=== PATIENT | female | born 1990 | race Caucasian/White ===

== ENCOUNTER 2024-04-21 07:30 | Observation (INO) | payer OTHER, SELFPAY ==
[2024-04-21] VITALS (13 sets, daily range): BP systolic 98–140; BP diastolic 56–81; PULSE 77–165; RESP 16–21; TEMP 36.4–37; O2SAT 96–100; BMI 27.1
--- NOTE | ~2024-04-21 | XR_ITS ---
EXAMINATION: XR CHEST CLINICAL INFORMATION: tachycardia COMPARISON: None available. TECHNIQUE: 2 views of the chest were obtained. FINDINGS: The cardiac, hilar, and mediastinal contours are normal. The lungs are clear bilaterally. There is no pneumothorax or pleural effusion. There is no focal osseous or soft tissue abnormality. XR/XR chest 2V IMPRESSION: Normal chest. Electronically signed by: Jesse Fraser MD 04/21/2024 03:07 PM [facility] [place]
--- NOTE | 2024-04-21 07:37 | ECG_ITS ---
Test Reason : TACHYCARDIA Blood Pressure : / mmHG Vent. Rate : 110 BPM Atrial Rate : 110 BPM P-R Int : 134 ms QRS Dur : 104 ms QT Int : 364 ms P-R-T Axes : 063 048 030 degrees QTc Int : 492 ms Poor data quality Sinus tachycardia Possible Left atrial enlargement No previous ECGs available Referred By: Lyndsey Garcia Electronically Signed By:CA TAPIA MD
[2024-04-21 10:00] LABS: Appearance Urine Cloudy; Color Urine RED; Glucose Urine UA Negative (Negative); Leukocyte Esterase Urine Trace (Negative); Nitrite Urine Negative (Negative); PH 5.5 (5.0-9.0); Specific Gravity - Urine >= 1.030 (1.005-1.025); UMIC TRIGGER UACC YES; Urine Blood Large (3+) (Negative); Urine Ketones >=80 mg/dL (Negative); Urine Protein 100 (2+) mg/dL (Neg-Trace)
[2024-04-21 10:02] LABS: UPreg QC Valid YES; Urine Pregnancy NEGATIVE (NEGATIVE)
[2024-04-21 10:10] LABS: Bacteria Urine 2+ (None Seen); Hyaline Casts Urine 0-2 /LPF (0-2); RBC Urine >20 /HPF (0-2); UACC Culture Trigger YES
--- NOTE | 2024-04-21 10:27 | ECG_ITS ---
Test Reason : TACHYCARDIA Blood Pressure : / mmHG Vent. Rate : 128 BPM Atrial Rate : 128 BPM P-R Int : 120 ms QRS Dur : 084 ms QT Int : 394 ms P-R-T Axes : 038 043 020 degrees QTc Int : 575 ms Sinus tachycardia Nonspecific ST and T wave abnormality Abnormal ECG No previous ECGs available Referred By: Lyndsey Garcia Electronically Signed By:CA TAPIA MD
--- NOTE | 2024-04-21 10:30 | ED_ITS ---
HPI - Arrhythmia/Palpitations General Chief Complaint: Arrhythmia/Palpitations Stated Complaint: TACHYCARDIA,NOT EATING OR DRINKING PER EMS Time Seen by Provider: 04/21/24 09:01 Source: patient and RN notes reviewed Mode of arrival: ambulatory Limitations: no limitations History of Present Illness ED Provider: Lyndsey Garcia PA-C HPI narrative: This is a 33-year-old female who presents emergency department with concerns for palpitations which started this morning. Patient states that over the last 4 days, she has been fasting without any food or water/beverage. She states that while she was cooking today she felt as though her heart was racing when she was standing. She states that she sat down in her symptoms alleviated. She went to go stand back up again, and felt as though her heart was racing again. She states that she did have some lightheadedness sensation. She denies history of similar symptoms in the past. She states that she is fasting for protestant purposes, she states that she has not fasted for this long. She states that today would be the 5th day of her fasting. She states that she has a history of thyroid problems, states that she had a fine-needle aspiration performed multiple years ago which was benign. She is not on thyroid medications. She denies any chest pain, shortness for breath, abdominal pain, nausea, vomiting or diarrhea. No history of cardiac problems in the past. Denies any recent travel, surgery, hospitalizations. No history of blood clots. She is not on control. She does not smoke or drink alcohol. No other complaints or concerns at this time. complaint: rapid heart beat, heart racing and palpitations Onset (ago): hour(s) Time: 08:00 Duration: intermittent Related Data Previous Rx's ?Medication ?Instructions ?Recorded cefuroxime axetil 500 mg tablet 500 mg PO BID #10 tabs 04/22/24 Allergies Allergy/AdvReac Type Severity Reaction Status Date / Time No Known Allergies Allergy Verified 04/21/24 07:43 Review of Systems 2 Review of Systems: Yes all other systems are reviewed and are negative Constitutional: Constitutional: Reports as per [facility] Past Medical History Medical History (Updated 04/22/24 @ 12:15 by Stephen Sheridan MD) Thyroid nodule Social History Social History Household Members: Children Housing: Apartment Do you presently have visiting nurse or other home services: No Patient Tobacco Use Status: Never used Tobacco e-Cigarette/Vaping Use: Never Used Second Hand Smoke Exposure: No service: No Physical Exam 2 Vital Signs: Vital Signs: Last Vital Signs Temp 97.5 F 04/22/24 11:39 Pulse 82 04/22/24 11:39 Resp 18 04/22/24 11:39 BP 122/71 04/22/24 11:39 Pulse Ox 99 04/22/24 11:39 O2 Del Method Room Air 04/22/24 11:39 BMI result Body Mass Index 27.1 Const: General: cooperative, comfortable and no acute distress O rientation/consciousness: patient oriented x3 Limitations: no limitations HEENT: Head: Yes normal to inspection, Yes normocephalic and Yes atraumatic Ears: hearing grossly normal bilaterally General nose exam: Normal external nose present Face and sinus: Yes normal facial exam Mouth: Normal oral and palatal mucosa present, oropharynx normal and moist mucous membranes Throat: Yes posterior oropharynx normal Eyes: General: appearance normal, both eyes and all related structures E yelids: Yes eyelids normal Conjunctivae: conjunctivae normal Sclerae: s clerae normal Pupils: Equal, round and reactive pupils present EOM: EOMs intact bilaterally Neck: Neck: Yes normal visual inspection, Yes full ROM and Yes no lymphadenopathy Lymphatic: no lymphadenopathy noted Chest: Chest palpation & inspection: normal inspection of the chest Resp: Effort & Inspection: normal respiratory effort and able to speak in complete sentences Auscultation: clear to auscultation bilaterally, no crackles, no rales, no rhonchi and no wheezes Cardio: Rate: regular rate Rhythm: regular rhythm Heart sounds: S1 normal heart sound present and S2 normal heart sound present GI: Other: Abdomen is soft, nontender, nondistended Inspection: Yes normal to inspection Skin: General skin exam: no rashes or lesions noted Trauma: no lacerations or abrasions Wounds: no wounds Neuro: General: patient oriented x3 and moves all extremities Cranial nerves: Yes Equal, round and reactive pupils present Extrem: Other: No calf tenderness. Strong DP pulse. General: Yes normal to inspection Right upper extremity: normal to inspection Left upper extremity: normal to inspection Right lower extremity: normal to inspection Left lower extremity: normal to inspection Course Reevaluation(s) Reevaluation #1: Patient re-evaluated, she was currently receiving 2 L of LR. She was feeling much better, she remains to be between 95 and 105 beats per minute. Appears to continuously be in sinus tachycardia. Added D-dimer to rule out PE etiology although she is PERC negative. Will obtain repeat EKG now that her heart rate has decreased. She was also requesting food, she is currently eating a sandwich. Will continue to closely monitor. Time: 11:57 Reevaluation #2: D-dimer negative, overall workup is reassuring. I discussed case with Dr. Subramanian, who does not appreciate any arrhythmias. Encouraged to hydrate and reassess, no other interventions required at this time. Patient did walk to the restroom, and became tachycardic. We had ambulation trial, her tachycardia when up to the 130s even with just 10 steps. Given that we have attempted to rehydrate her with multiple L of fluids, with reassuring workup despite intractable tachycardia, patient should be admitted for observation. Discussed case with hospitalist, Dr. Squires, transfer of care initiated. Time: 14:49 Medications Administered Discontinued Medications Generic Name Dose Route Start Last Admin Trade Name Freq PRN Reason Stop Dose Admin Ceftriaxone Sodium 1 gm 04/22/24 13:00 04/22/24 12:50 Ceftriaxone Sodium 1 Gm Vial IVPUSH 1 gm Q24H ANNITA Administration Lactated Ringer's 1,000 mls @ 999 mls/hr 04/21/24 10:29 04/21/24 12:02 Lr IV 04/21/24 11:29 Infused .Q1H1M STA Infusion Lactated Ringer's 1,000 mls @ 999 mls/hr 04/21/24 11:26 04/21/24 13:15 Lr IV 04/21/24 12:26 Infused .Q1H1M ONE Infusion Sodium Chloride 1,000 mls @ 999 mls/hr 04/21/24 14:29 04/21/24 16:13 Ns IV 04/21/24 15:29 Infused .Q1H1M ONE Infusion Lactated Ringer's 1,000 mls @ 100 mls/hr 04/21/24 17:15 04/22/24 03:42 Lr IVCONT 04/22/24 03:14 Infused .Q10H ANNITA Infusion Sodium Chloride 3 ml 04/22/24 00:00 04/22/24 08:08 0.9 % Sodium Chloride Flush 3 Ml Syringe IVFLUSH Not Given [facility] Medical Decision Making Medical Decision Making [facility] Narrative: This is a 33-year-old female who presents emergency department with concerns for palpitations which started this morning. On arrival, patient not tachycardic, well-appearing. She does admit to fasting for the last 4 days, today would be her 5th day without any food or water. She is doing this for protestant purposes. She has a history of fasting however has not fasted for this long. Patient has periods, ranging from 110s to 160s at rest. Repeat EKGs revealing sinus tachycardia. Plan: Labs, EKG, chest x-rays, we will continue to closely monitor, cardiac monitor technician, will replenish fluids with IV lactated Ringer's Differential Diagnosis Differential Diagnoses: The differential diagnosis associated with the presentation includes Dehydration, electrolyte derangement, sinus tachycardia, hyperthyroidism, thyroid storm, ACS Admission/Observation Consideration of admission/observation: Escalation of care including admission/observation considered Consult Healthcare Provider Management of the patient was discussed with: Software Publisher Dr. Subramanian, cardiology Lab Data [facility] Lab Attestation statement: I reviewed the patient's lab results. No leukocytosis, normocytic anemia with an H&H of 11.1/35.6; UA does appear to be contaminated. negative . 04/21/24 10:38 04/21/24 10:38 Labs: Lab Results 04/21/24 04/21/24 04/21/24 Range/Units 09:54 10:38 12:25 WBC 9.9 (4.8-10.8) X10*3/uL RBC 4.35 (4.20-5.50) X10*6/uL Hgb 11.1 L (12.0-16.0) g/dl Hct 35.6 L (37.0-47.0) % MCV 81.8 (80.0-98.0) fL MCH 25.5 L (27.0-33.0) pg MCHC 31.2 (31.0-35.0) g/dl RDW 15.9 (11.0-16.0) % Plt Count 375 (160-400) X10*3/uL MPV 10.9 (9.4-12.3) fL Immature Gran % (Auto) 0.2 (0.0-0.4) % Neut % (Auto) 84.1 H (45-73) % Lymph % (Auto) 11.2 L (20-40) % [place] % (Auto) 4.2 (2-11) % Eos % (Auto) 0.0 (0-4) % Baso % (Auto) 0.3 (0-2) % Lymph # (Auto) 1.1 L (1.2-4.9) X10*3/uL [place] # (Auto) 0.4 (0.1-1.2) X10*3/uL Eos # (Auto) 0.0 (0.0-0.4) X10*3/uL Baso # (Auto) 0.0 (0.0-0.2) X10*3/uL Abs Immat Gran (auto) 0.02 (0.00-0.03) X10*3/uL Absolute Neuts (auto) 8.3 (2.0-8.3) x10*3/uL Absolute Nucleated RBC 0.000 (0.0-0.012) X10*3/uL Nucleated RBC % (auto) 0.0 (0.0-0.2) /100WBC D-Dimer High Sensitivty < 150 NG/ML Sodium 139 (135-145) mmol/L Potassium 3.8 (3.3-5.1) mmol/L Chloride 106 (96-108) mmol/L Carbon Dioxide 18 L (22-29) mmol/L Anion Gap 19 (12-20) BUN 16 (9-16) mg/dL Creatinine 0.68 (0.5-1.4) mg/dL Estim Creat Clear Calc 116.3 Estimated GFR > 60 POC Glucose (60-115) mg/dL Random Glucose 65 (60-115) mg/dL Calcium 8.9 (8.4-10.2) mg/dL Total Bilirubin 0.7 (0.0-1.0) mg/dL AST 19 (5-31) U/L ALT < 6 (0-31) U/L Alkaline Phosphatase 67 (39-117) U/L Total Creatine Kinase 39 (26-140) U/L Troponin I High Sens < 2.7 (<3.5-17.0) ng/L Total Protein 8.0 (6.5-8.0) g/dL Albumin 4.6 (3.5-5.0) g/dL TSH 1.56 (0.32-4.0) uIU/mL Urine Color RED Urine Appearance Cloudy Urine pH 5.5 (5.0-9.0) Ur Specific [place] >= 1.030 H (1.005-1.025) Urine Protein 100 (2+) H (Neg-Trace) mg/dL Urine Glucose (UA) Negative (Negative) mg/dL Urine Ketones >=80 (Negative) mg/dL Urine Blood Large (3+) H (Negative) Urine Nitrite Negative (Negative) Ur Leukocyte Esterase Trace H (Negative) Urine RBC >20 H (0-2) /HPF Urine WBC 11-20 H (0-5) /HPF Ur Squamous Epith Cells 11-20 (0-2) /HPF Urine Bacteria 2+ (None Seen) Hyaline Casts 0-2 (0-2) /LPF Urine Test NEGATIVE (NEGATIVE) Influenza Type A (PCR) (Negative) Influenza Type B (PCR) (Negative) RSV RNA Qual (PCR) (Negative) SARS-CoV-2 RNA (RT-PCR) (Negative) 04/21/24 04/21/24 04/21/24 Range/Units 13:13 14:28 15:29 WBC (4.8-10.8) X10*3/uL RBC (4.20-5.50) X10*6/uL Hgb (12.0-16.0) g/dl Hct (37.0-47.0) % MCV (80.0-98.0) fL MCH (27.0-33.0) pg MCHC (31.0-35.0) g/dl RDW (11.0-16.0) % Plt Count (160-400) X10*3/uL MPV (9.4-12.3) fL Immature Gran % (Auto) (0.0-0.4) % Neut % (Auto) (45-73) % Lymph % (Auto) (20-40) % [place] % (Auto) (2-11) % Eos % (Auto) (0-4) % Baso % (Auto) (0-2) % Lymph # (Auto) (1.2-4.9) X10*3/uL [place] # (Auto) (0.1-1.2) X10*3/uL Eos # (Auto) (0.0-0.4) X10*3/uL Baso # (Auto) (0.0-0.2) X10*3/uL Abs Immat Gran (auto) (0.00-0.03) X10*3/uL Absolute Neuts (auto) (2.0-8.3) x10*3/uL Absolute Nucleated RBC (0.0-0.012) X10*3/uL Nucleated RBC % (auto) (0.0-0.2) /100WBC D-Dimer High Sensitivty NG/ML Sodium (135-145) mmol/L Potassium (3.3-5.1) mmol/L Chloride (96-108) mmol/L Carbon Dioxide (22-29) mmol/L Anion Gap (12-20) BUN (9-16) mg/dL Creatinine (0.5-1.4) mg/dL Estim Creat Clear Calc Estimated GFR POC Glucose 121 H (60-115) mg/dL Random Glucose (60-115) mg/dL Calcium (8.4-10.2) mg/dL Total Bilirubin (0.0-1.0) mg/dL AST (5-31) U/L ALT (0-31) U/L Alkaline Phosphatase (39-117) U/L Total Creatine Kinase (26-140) U/L Troponin I High Sens < 2.7 (<3.5-17.0) ng/L Total Protein (6.5-8.0) g/dL Albumin (3.5-5.0) g/dL TSH (0.32-4.0) uIU/mL Urine Color Urine Appearance Urine pH (5.0-9.0) Ur Specific [place] (1.005-1.025) Urine Protein (Neg-Trace) mg/dL Urine Glucose (UA) (Negative) mg/dL Urine Ketones (Negative) mg/dL Urine Blood (Negative) Urine Nitrite (Negative) Ur Leukocyte Esterase (Negative) Urine RBC (0-2) /HPF Urine WBC (0-5) /HPF Ur Squamous Epith Cells (0-2) /HPF Urine Bacteria (None Seen) Hyaline Casts (0-2) /LPF Urine Test (NEGATIVE) Influenza Type A (PCR) NEGATIVE (Negative) Influenza Type B (PCR) NEGATIVE (Negative) RSV RNA Qual (PCR) NEGATIVE (Negative) SARS-CoV-2 RNA (RT-PCR) NEGATIVE (Negative) Radiology Impression Discussion of test interpretation with radiology: I have reviewed the radiologist's reading. Radiologist Impression: XR/XR chest 2V IMPRESSION: Normal chest. Electronically signed by: Jesse Fraser MD 04/21/2024 03:07 PM [facility] Dictated By: Jesse Fraser MD Discharge Plan Discharge Clinical Impression: Sinus tachycardia Patient Disposition: Still a Patient Interventions: Admission Worksheet (ED) Last Done: 04/21/24 19:50 Discharge Date/Time: 04/21/24 21:18
[2024-04-21] MEDS: Lactated Ringers 1,000 ML 999 ML IV ×2 (10:37→11:37)
[2024-04-21 10:46] LABS: MANUAL DIFF FLAG NO
[2024-04-21 10:50] LABS: Basophils Percent Auto 0.3 % (0-2); Hematocrit 35.6 % (37.0-47.0); Hemoglobin 11.1 g/dl (12.0-16.0); Imm Gran Abs Auto 0.02 X10*3/uL (0.00-0.03); Imm Gran Pct Auto 0.2 % (0.0-0.4); Lymphocytes Absolute Auto 1.1 X10*3/uL (1.2-4.9); Lymphocytes Percent Auto 11.2 % (20-40); Mean Corpuscular HGB Conc 31.2 g/dl (31.0-35.0); Mean Corpuscular Hemoglobin 25.5 pg (27.0-33.0); Mean Corpuscular Volume 81.8 fL (80.0-98.0); Mean Platelet Volume 10.9 fL (9.4-12.3); Monocytes Absolute Auto 0.4 X10*3/uL (0.1-1.2); Monocytes Percent Auto 4.2 % (2-11); Neutrophils Absolute Auto 8.3 x10*3/uL (2.0-8.3); Neutrophils Percent Auto 84.1 % (45-73); Platelet Count 375 X10*3/uL (160-400); Red Blood Count 4.35 X10*6/uL (4.20-5.50); Red Cell Distribution Width 15.9 % (11.0-16.0); White Blood Count 9.9 X10*3/uL (4.8-10.8)
[2024-04-21 11:08] LABS: Alanine Aminotransferase < 6 U/L (0-31); Albumin Level 4.6 g/dL (3.5-5.0); Alkaline Phosphatase 67 U/L (39-117); Anion Gap 19 (12-20); Aspartate Amino Transferase 19 U/L (5-31); Bilirubin Total 0.7 mg/dL (0.0-1.0); Blood Urea Nitrogen 16 mg/dL (9-16); Calcium 8.9 mg/dL (8.4-10.2); Carbon Dioxide 18 mmol/L (22-29); Chloride 106 mmol/L (96-108); Creatinine Clr Calc Pharmacy 116.3; Estimated Glomerular Filt Rate > 60; Glucose Random 65 mg/dL (60-115); Potassium 3.8 mmol/L (3.3-5.1); Sodium 139 mmol/L (135-145)
--- NOTE | 2024-04-21 11:17 | PC.NURSE ---
Late entry: Pt presents to ED via EMS from home. Reporting fasting with no food or water X4 days for yazdanism reasons. Today felt palpitations and tachycardia while standing, felt like she was going to pass out. Called the ambulance. Alert and oriented, breathing even and unlabored, skin warm and dry. Denies CP, SOB, fevers, recent illnesses
[2024-04-21 11:27] LABS: TSH reflex Free T4 1.56 uIU/mL (0.32-4.0)
--- NOTE | 2024-04-21 11:27 | PC.NURSE ---
This RN was called into room, pts HR increased to 160-170 while laying in bed, did not get up or move. Provider at bedside, repeat EKG, labs and fluids started. Pt remained alert and oriented with stable BP. Denied pain, only reported palpitations. HR decreased on its own to 100-130.
[2024-04-21 11:47] LABS: Troponin-I High Sensitivity < 2.7 ng/L (<3.5-17.0)
--- NOTE | 2024-04-21 11:52 | ECG_ITS ---
Test Reason : REPEAT Blood Pressure : / mmHG Vent. Rate : 098 BPM Atrial Rate : 098 BPM P-R Int : 142 ms QRS Dur : 082 ms QT Int : 362 ms P-R-T Axes : 016 047 013 degrees QTc Int : 462 ms Normal sinus rhythm with sinus arrhythmia Normal ECG When compared to the previous EKG of Nonspecific ST abnormality is no longer Present Referred By: Lyndsey Garcia Electronically Signed By:CA TAPIA MD
[2024-04-21 12:39] LABS: D Dimer High Sensitivity < 150 NG/ML
[2024-04-21 13:18] LABS: Glucose, Whole Blood 121 mg/dL (60-115)
[2024-04-21] MEDS: 0.9 % Sodium Chloride 1,000 ML 999 ML IV (14:38)
[2024-04-21 14:54] LABS: Troponin-I High Sensitivity < 2.7 ng/L (<3.5-17.0)
[2024-04-21 16:24] LABS: Influenza A PCR NEGATIVE (Negative); Influenza B PCR NEGATIVE (Negative); Resp Syncy Virus RNA Qual PCR NEGATIVE (Negative); SARS COV2 PCR INHOUSE NEGATIVE (Negative)
--- NOTE | 2024-04-21 16:52 | P.HPHOSP_ITS ---
History of Present Illness Date of Service: 04/21/24 Attending physician on admission: Albert Squires Chief Complaint: Palpitations Pt is a 33-year-old female with a PMH significant for?benign thyroid nodule not on home medications who presents to the ED with?palpitations and tachycardia since earlier this morning. Patient reports she has been fasting for the past 4 days for lutheran reasons. Has not been eating or drinking anything. This morning upon waking patient attempted to stand up and felt her heart racing so she lay back down to rest. Second attempt at standing led to racing heart again, and she also felt lightheaded and dizzy so called EMS to bring her to the ED for further evaluation. The patient denies chest pain/pressure. No shortness a breath or difficulty breathing. Denies nausea, vomiting, diarrhea. No abdominal pain. Patient notes this is her longest fast yet; usually fasts for 2-3 days at a time and has never had prior complications. Patient was able to eat and drink without incident in the ED. In the ED pt was tachycardic up to 165, vitals otherwise stable and WNL Labs were grossly unremarkable and baseline for patient P no leukocytosis. Stable H&H. No significant electrolyte abnormalities. Renal function baseline. Hepatic function baseline. Serial troponins negative. D-dimer negative. TSH WNL at 1.56. UA with sediment and gross hematuria. Tested negative for flu, RSV, COVID. CXR showed negative for acute cardiopulmonary process. EKG demonstrated sinus tachycardia of [address] and T-wave abnormality. Repeat EKG showed normal sinus rhythm with nonspecific T-wave inversion in V1. Pt was treated with 3L IVF. Pt will be admitted to the hospital under observation for treatment and further evaluation of positional tachycardia. Review of Systems 2 Review of Systems: Negative except for that which is stated in the [facility] Medical History (Updated 04/21/24 @ 17:44 by SHAILESH Álvarez) Thyroid nodule Social History Smoked in Last 30 Days: No Use of substances other than those prescribed or required for medical reasons: No Advance Directives: No Advance Directives Information Provided: No Patient : No Meds Allergies Allergy/AdvReac Type Severity Reaction Status Date / Time No Known Allergies Allergy Verified 04/21/24 07:43 Physical Exam 2 Vital Signs and Narrative: Vital Signs: Last Vital Signs Temp 98.6 F 04/21/24 16:12 Pulse 102 H 04/21/24 16:12 Resp 18 04/21/24 16:12 BP 105/56 L 04/21/24 16:12 Pulse Ox 99 04/21/24 16:12 O2 Del Method Room Air 04/21/24 16:12 BMI result Body Mass Index 27.1 General: AOx4, no acute distress Resp: CTA bilaterally CVS: S1, S2, regular rhythm, tachycardic GI: +BS, NT, no distention Skin: Warm, dry Neuro: Cranial nerves II-XII grossly intact bilaterally. Motor grossly intact bilaterally Extremities: No edema Psych: Appropriate affect Results Labs 04/21/24 10:38 04/21/24 10:38 Labs: Laboratory Results - last 24 hr 04/21/24 04/21/24 04/21/24 09:54 10:38 12:25 MCV 81.8 MCH 25.5 L MCHC 31.2 RDW 15.9 Plt Count 375 MPV 10.9 Immature Gran % (Auto) 0.2 Neut % (Auto) 84.1 H Lymph % (Auto) 11.2 L [place] % (Auto) 4.2 Eos % (Auto) 0.0 Baso % (Auto) 0.3 Lymph # (Auto) 1.1 L [place] # (Auto) 0.4 Eos # (Auto) 0.0 Baso # (Auto) 0.0 Abs Immat Gran (auto) 0.02 Absolute Neuts (auto) 8.3 Absolute Nucleated RBC 0.000 Nucleated RBC % (auto) 0.0 D-Dimer High Sensitivty < 150 Anion Gap 19 Estim Creat Clear Calc 116.3 Estimated GFR > 60 POC Glucose Random Glucose 65 Calcium 8.9 Total Bilirubin 0.7 AST 19 ALT < 6 Alkaline Phosphatase 67 Total Creatine Kinase 39 Troponin I High Sens < 2.7 Total Protein 8.0 Albumin 4.6 TSH 1.56 Urine Color RED Urine Appearance Cloudy Urine pH 5.5 Ur Specific [place] >= 1.030 H Urine Protein 100 (2+) H Urine Glucose (UA) Negative Urine Ketones >=80 Urine Blood Large (3+) H Urine Nitrite Negative Ur Leukocyte Esterase Trace H Urine RBC >20 H Urine WBC 11-20 H Ur Squamous Epith Cells 11-20 Urine Bacteria 2+ Hyaline Casts 0-2 Urine Test NEGATIVE Influenza Type A (PCR) Influenza Type B (PCR) RSV RNA Qual (PCR) SARS-CoV-2 RNA (RT-PCR) 04/21/24 04/21/24 04/21/24 13:13 14:28 15:29 MCV MCH MCHC RDW Plt Count MPV Immature Gran % (Auto) Neut % (Auto) Lymph % (Auto) [place] % (Auto) Eos % (Auto) Baso % (Auto) Lymph # (Auto) [place] # (Auto) Eos # (Auto) Baso # (Auto) Abs Immat Gran (auto) Absolute Neuts (auto) Absolute Nucleated RBC Nucleated RBC % (auto) D-Dimer High Sensitivty Anion Gap Estim Creat Clear Calc Estimated GFR POC Glucose 121 H Random Glucose Calcium Total Bilirubin AST ALT Alkaline Phosphatase Total Creatine Kinase Troponin I High Sens < 2.7 Total Protein Albumin TSH Urine Color Urine Appearance Urine pH Ur Specific [place] Urine Protein Urine Glucose (UA) Urine Ketones Urine Blood Urine Nitrite Ur Leukocyte Esterase Urine RBC Urine WBC Ur Squamous Epith Cells Urine Bacteria Hyaline Casts Urine Test Influenza Type A (PCR) NEGATIVE Influenza Type B (PCR) NEGATIVE RSV RNA Qual (PCR) NEGATIVE SARS-CoV-2 RNA (RT-PCR) NEGATIVE Imaging Radiologist's Impressions: Impressions Chest X-Ray 04/21/24 14:54 IMPRESSION: Normal chest. Electronically signed by: Jesse Fraser MD 04/21/2024 03:07 PM [facility] Assessment and Plan (1) Sinus tachycardia: Status: Acute Plan Pt is a 33-year-old female with a PMH significant for?benign thyroid nodule not on home medications who presents to the ED with?palpitations and tachycardia since earlier this morning. Pt will be admitted to the hospital under observation for treatment and further evaluation of positional tachycardia. Sinus tachycardia Patient with tachycardia/palpitations with some lightheadedness since this morning Primarily positional with standing Patient has been fasting x4 days, her longest yet Broke fast in the ED, tolerating food and drink Patient received 3L IVF in the ED Likely in the setting of prolonged fast, though POTS also on differential Will place on maintenance fluids overnight Cardiology consult Monitor on telemetry Hx of benign thyroid nodule S/P partial thyroidectomy Patient not thyroid replacement therapy TSH WNL Gross hematuria Patient currently menstruating Full Code Attending:?Dr. Squires DVT Prophylaxis: Pt ambulatory, here for observation Patient will be admitted to the hospital under observation for treatment and further evaluation of persistent tachycardia and palpitations. Patient requires administration of IVF, specialist consultation with Cardiology, and continuous cardiac monitoring. Quality Stroke Does the patient have a stroke diagnosis?: No VTE Prior VTE?: No VTE Risk Level:: Medical - moderate - high VTE Device Contraindication: N/A - Device Ordered VTE Drug Contraindication: Treatment Not Indicated
--- NOTE | 2024-04-21 17:00 | PHA.MEDREC ---
Pharmacy Consult ? Medication Reconciliation Pharmacy has completed the medication reconciliation. Spoke to patient at bedside, she takes no medicaitons at home.
[2024-04-21] MEDS: Lactated Ringers 1,000 ML 100 ML IVCONT (17:40)
[2024-04-22 03:09] VITALS: BP 118/68; PULSE 76; RESP 16; TEMP 37; O2SAT 100
--- NOTE | 2024-04-22 04:48 | PC.NURSE ---
Assumed care of patient at 23:00. Reported provided by AMY Kumar.
[2024-04-22 07:06] VITALS: BP 108/58; PULSE 84; RESP 18; TEMP 36.7; O2SAT 97
--- NOTE | 2024-04-22 10:13 | MHC.CM.PN ---
NIC[place]LE 04/22/24, Pt lives with her children, she is independent, no home health services or DME. She can arrange transport home at DC. CM to follow for DC needs.
[2024-04-22 11:39] VITALS: BP 122/71; PULSE 82; RESP 18; TEMP 36.4; O2SAT 99
--- NOTE | 2024-04-22 12:15 | PM.DS ---
DS: Providers Provider Date of Service: 04/22/24 Date of admission: 04/21/24 17:14 Date of discharge: 04/22/24 Primary care physician: Unknown Physician Consults: 04/21/24 17:14 Consult to Cardiology Routine Consulting Provider: [facility] Reason for consultation: Tachycardia, lightheadedness DS: Diagnosis Discharge Diagnosis (1) Sinus tachycardia: Status: Acute (2) UTI (urinary tract infection): Status: Acute DS: Summary Hospital Course Hospital Course: Admission note HPI Pt is a 33-year-old female with a PMH significant for?benign thyroid nodule not on home medications who presents to the ED with?palpitations and tachycardia since earlier this morning. Patient reports she has been fasting for the past 4 days for orthodox reasons. Has not been eating or drinking anything. This morning upon waking patient attempted to stand up and felt her heart racing so she lay back down to rest. Second attempt at standing led to racing heart again, and she also felt lightheaded and dizzy so called EMS to bring her to the ED for further evaluation. The patient denies chest pain/pressure. No shortness a breath or difficulty breathing. Denies nausea, vomiting, diarrhea. No abdominal pain. Patient notes this is her longest fast yet; usually fasts for 2-3 days at a time and has never had prior complications. Patient was able to eat and drink without incident in the ED. In the ED pt was tachycardic up to 165, vitals otherwise stable and WNL Labs were grossly unremarkable and baseline for patient P no leukocytosis. Stable H&H. No significant electrolyte abnormalities. Renal function baseline. Hepatic function baseline. Serial troponins negative. D-dimer negative. TSH WNL at 1.56. UA with sediment and gross hematuria. Tested negative for flu, RSV, COVID. CXR showed negative for acute cardiopulmonary process. EKG demonstrated sinus tachycardia of [address] and T-wave abnormality. Repeat EKG showed normal sinus rhythm with nonspecific T-wave inversion in V1. Pt was treated with 3L IVF. Pt will be admitted to the hospital under observation for treatment and further evaluation of positional tachycardia. Hospital course The patient was monitored for sinus tachycardia with No chest pain, SOB, lightheadness, LOC, syncope, nausea, vomiting, diarrhea. She received IV fluids boluses with good response as HR stabilized and she did not have any more palpitations. Monitored on Telemetry with no recorded abnormalities. UA showed possible UTI which might add to her fasting of 4 days causing the palpitations and tachycardia. Treated with IV Ceftriaxone and will be dischaged home on Ceftin to finish total of 5 days of Abx. Discharge plan Stay well hydrated Continue Antibiotics as prescribed Time Attestation Discharge Coordination Time (in mins): 27 Quality: Safe Use of Opioids Does Pt have an Active Cancer Diagnosis on the Problem List?: No Quality: Stroke Does the patient have a stroke diagnosis?: No Physical Exam Vital Signs: Vital Signs: Last Vital Signs Temp 97.5 F 04/22/24 11:39 Pulse 82 04/22/24 11:39 Resp 18 04/22/24 11:39 BP 122/71 04/22/24 11:39 Pulse Ox 99 04/22/24 11:39 O2 Del Method Room Air 04/22/24 11:39 BMI result Body Mass Index 27.1 Const: Other: Constitutional : Awake, interactive, not in distress Neck : Normal inspection, Supple Cardiovascular : RRR, no JVP, no lower extremity edema Respiratory : good bilateral air entry, no crackles, wheezes or rhonchi Gastrointestinal: soft, lax, Normal bowel sounds, Non tender Skin : Warm, Dry Neurological : Alert & oriented x3, No focal deficit DS: Data Data Completed and Pending Labs on day of discharge: Laboratory Results - last 24 hr 04/21/24 04/21/24 04/21/24 12:25 13:13 14:28 D-Dimer High Sensitivty < 150 POC Glucose 121 H Troponin I High Sens < 2.7 Influenza Type A (PCR) Influenza Type B (PCR) RSV RNA Qual (PCR) SARS-CoV-2 RNA (RT-PCR) 04/21/24 15:29 D-Dimer High Sensitivty POC Glucose Troponin I High Sens Influenza Type A (PCR) NEGATIVE Influenza Type B (PCR) NEGATIVE RSV RNA Qual (PCR) NEGATIVE SARS-CoV-2 RNA (RT-PCR) NEGATIVE Imaging Chest x-ray: Radiologist's impression: ITS Impressions Chest X-Ray 04/21/24 14:54 IMPRESSION: Normal chest. Electronically signed by: Jesse Fraser MD 04/21/2024 03:07 PM [facility] Discharge Plan Discharge Anticipated Discharge Date/Time: 04/22/24 12:10 Patient Disposition: Home, Self-Care Discharge Diagnosis: Dehydration Sinus tachycardia Referrals: Physician,Unknown J [Primary Care Provider] - 1 Week Discharge Medications: New cefuroxime axetil 500 mg tablet 500 mg PO BID Qty: 10 0RF Discharge Orders: Discharge Order (Routine); Ordered 04/22/24 Ordered By: Stephen Sheridan Diet: Advance to usual diet Activity on Discharge: As tolerated Stand Alone Forms: Patient Portal Discharge page Print Language: Mauritian Care Plan Goals: Stay well hydrated Continue Antibiotics treatment Health Concerns: UTI Dehydration Plan of Treatment: Antibiotics Assessment: as above
--- NOTE | 2024-04-22 12:32 | MHC.CM.PN ---
Pt has been medically cleared for DC, she will go home via private transport, plan is self care.
[2024-04-22] MEDS: cefTRIAXone sodium 1 GM VIAL IVPUSH (12:50)
== END 2024-04-22 13:00 | disposition home or self-care (01) ==
LOC: HO.ED 14:54 → HO.EDOVER 17:20 → HO.IMC 19:21
PROVIDERS: Physician Assistant Medical; Admitting Provider Student in an Organized Health Care Education/Training Program; Emergency Provider Emergency Medicine; Visit Provider Student in an Organized Health Care Education/Training Program
DX: R00.0 Tachycardia, unspecified (principal); N39.0 Urinary tract infection, site not specified; R00.2 Palpitations; Z03.818 Encounter for observation for suspected exposure to other biological agents ruled out
CPT/HCPCS: 0241U; 36415; 71046; 80053; 81001; 81025; 82550; 82947; 84443; 84484; 85025; 85379; 87086; 87147; 93005; 96361; 96374; 99222; 99285; J0696; J7120

== ENCOUNTER → 2024-04-21 07:37 | Outpatient (BNV) | payer OTHER, SELFPAY | PROVIDERS: Emergency Provider Emergency Medicine; Visit Provider Internal Medicine Cardiovascular Disease | DX: R00.0 Tachycardia, unspecified (principal); I49.9 Cardiac arrhythmia, unspecified | CPT/HCPCS: 93010 ==

== ENCOUNTER → 2024-04-21 14:54 | Outpatient (BNV) | payer OTHER, SELFPAY | PROVIDERS: Emergency Provider Emergency Medicine; Visit Provider Radiology Diagnostic Radiology | DX: R00.0 Tachycardia, unspecified (principal) | CPT/HCPCS: 71046 ==

== ENCOUNTER → 2024-04-21 17:14 | Outpatient (BNV) | payer OTHER, SELFPAY | PROVIDERS: Admitting Provider Student in an Organized Health Care Education/Training Program; Emergency Provider Emergency Medicine; Visit Provider Student in an Organized Health Care Education/Training Program | DX: R00.0 Tachycardia, unspecified (principal); N39.0 Urinary tract infection, site not specified | CPT/HCPCS: 99222; 99238 ==

== ENCOUNTER 2024-04-23 03:55 | Emergency (ER) | payer OTHER, SELFPAY ==
[2024-04-23] VITALS (11 sets, daily range): BP systolic 112–144; BP diastolic 67–96; PULSE 78–130; RESP 14–19; TEMP 36.7–36.9; O2SAT 96–100; BMI 27.1
--- NOTE | 2024-04-23 | ECG_ITS ---
Test Reason : TACHY Blood Pressure : / mmHG Vent. Rate : 097 BPM Atrial Rate : 097 BPM P-R Int : 138 ms QRS Dur : 084 ms QT Int : 362 ms P-R-T Axes : 018 028 001 degrees QTc Int : 459 ms Normal sinus rhythm Nonspecific ST and T wave abnormality Abnormal ECG When compared with ECG of 21-APR-2024 12:00, Nonspecific T wave abnormality, worse in Anterior leads Referred By: Generic ED Physician Electronically Signed By:CA TAPIA MD
--- NOTE | 2024-04-23 | ECG_ITS ---
Test Reason : tachy 130's Blood Pressure : / mmHG Vent. Rate : 111 BPM Atrial Rate : 111 BPM P-R Int : 138 ms QRS Dur : 084 ms QT Int : 340 ms P-R-T Axes : 026 044 -14 degrees QTc Int : 462 ms Sinus tachycardia Nonspecific ST and T wave abnormality Abnormal ECG When compared with ECG of 23-APR-2024 04:06, Nonspecific T wave abnormality now evident in Lateral leads Referred By: Generic ED Physician Electronically Signed By:CA TAPIA MD
[2024-04-23 04:37] LABS: Hemoglobin 11.1 g/dl (12.0-16.0); Mean Corpuscular HGB Conc 32.6 g/dl (31.0-35.0); Mean Corpuscular Hemoglobin 25.9 pg (27.0-33.0); Mean Corpuscular Volume 79.3 fL (80.0-98.0); Mean Platelet Volume 10.2 fL (9.4-12.3); Platelet Count 302 X10*3/uL (160-400); Red Blood Count 4.29 X10*6/uL (4.20-5.50); Red Cell Distribution Width 16.1 % (11.0-16.0)
[2024-04-23 04:57] LABS: Troponin-I High Sensitivity < 2.7 ng/L (<3.5-17.0)
[2024-04-23 05:02] LABS: Alanine Aminotransferase 15 U/L (0-31); Albumin Level 3.9 g/dL (3.5-5.0); Alkaline Phosphatase 66 U/L (39-117); Anion Gap 14 (12-20); Aspartate Amino Transferase 19 U/L (5-31); Bilirubin Total 0.3 mg/dL (0.0-1.0); Blood Urea Nitrogen 8 mg/dL (9-16); Calcium 8.8 mg/dL (8.4-10.2); Carbon Dioxide 23 mmol/L (22-29); Chloride 112 mmol/L (96-108); Creatinine Clr Calc Pharmacy 116.3; Estimated Glomerular Filt Rate > 60; Glucose Random 124 mg/dL (60-115); Potassium 3.5 mmol/L (3.3-5.1); Sodium 145 mmol/L (135-145); Total Protein 6.7 g/dL (6.5-8.0)
--- NOTE | 2024-04-23 05:30 | ED_ITS ---
HPI - Arrhythmia/Palpitations General Chief Complaint: Arrhythmia/Palpitations Stated Complaint: TACHY Time Seen by Provider: 04/23/24 05:22 Source: patient and EMS Mode of arrival: EMS Limitations: no limitations History of Present Illness ED Provider: Dr. Jennifer Sanchez HPI narrative: Patient comes to the emergency room complaining of palpitations. Patient was discharged yesterday from the inpatient floor for the same symptoms. Previously, patient was admitted for palpitations. It was determined that patient was dehydrated due to lack of p.o. intake both solids and fluids due to mosque beliefs. Also, patient was diagnosed with a UTI. Patient states that after she got discharged home, she ate and drank fluids as usual. Patient states that about 2 hours ago patient woke up with palpitations, heart rate between 130 and 140, became concerned because she has not been fasting, came to the emergency room. Patient denies any chest pain, no shortness of breath. Patient states that when EMS arrived, her heart rate had already returned to normal. Related Data Previous Rx's ?Medication ?Instructions ?Recorded cefuroxime axetil 500 mg tablet 500 mg PO BID #10 tabs 04/22/24 Allergies Allergy/AdvReac Type Severity Reaction Status Date / Time No Known Allergies Allergy Verified 04/23/24 04:42 Review of Systems 2 Review of Systems: Constitutional : No Weight loss, No Fever, No Chills, No Night Sweats, No Fatigue, No Malaise ENT/Mouth : No Hearing loss, No Ear Pain, No Nasal Congestion, No Sinus Pain, No Hoarseness, No sore throat, No Rhinorrhea, No Swallowing Difficulty Eyes: No Eye Pain, No Swelling, No Redness, No Foreign Body, No Discharge, No Vision Changes Cardiovascular : No Chest Pain, No SOB, No Dyspnea on Exertion, No Orthopnea, no edema, complaining of palpitations intermittently. Respiratory : No Cough, No Sputum, No Wheezing, No Smoke Exposure, No Dyspnea Gastrointestinal : No Nausea, No Vomiting, No Diarrhea, No Constipation, No abdominal Pain, No Hematochezia, No Melena Genitourinary : no irregular bleeding, No Dysuria, No Urinary Frequency, No Hematuria, No Urinary Incontinence, No Urgency, No Flank Pain, No Urinary Flow Changes, No Hesitancy Musculoskeletal : No joint pain, No Myalgias, No Joint Swelling Skin : No Skin Lesions, No rash Neuro : No Weakness, No Numbness, No Paresthesias, No Loss of Consciousness, No Dizziness, No Headache Psych : No Anxiety/Panic, No Depression, No SI/HI/AH/VH, No Social Issues, Heme/Lymph: No Bruising, No Bleeding,No Lymphadenopathy Endocrine : No Polyuria, No Polydipsia, No Temperature Intolerance [facility] Past Medical History Medical History Thyroid nodule Social History Social History Household Members: Children Housing: Apartment Do you presently have visiting nurse or other home services: No Patient Tobacco Use Status: Never used Tobacco e-Cigarette/Vaping Use: Never Used Second Hand Smoke Exposure: No Advance Directives: No Advance Directives Information Provided: Yes service: No Physical Exam 2 Vital Signs: Vital Signs: Last Vital Signs Temp 98.1 F 04/23/24 06:45 Pulse 99 04/23/24 06:45 Resp 19 04/23/24 06:45 BP 120/72 04/23/24 06:45 Pulse Ox 96 04/23/24 06:45 O2 Del Method Room Air 04/23/24 06:45 BMI result Body Mass Index 27.1 Const: Other: Appearance: Alert. Oriented X3. No acute distress. Eyes: Pupils equal, round and reactive to light. ENT: Pharynx normal. Neck: Normal inspection. Neck supple. No lymph nodes noted. No crepitus CVS: Normal heart rate and rhythm. Pulses normal. Normal S1 and S2 Respiratory: No respiratory distress. Breath sounds normal. No Wheezing. No rales Abdomen: Soft and nontender. No rigidity. No distention. Skin: Skin warm and dry. Normal skin color. Normal skin turgor. Extremities: No lower extremity edema. No Lacerations. No Rash Neuro: Oriented X 3. No motor deficit. No sensory deficit. Moving all extremities. No slurred speech. CN 2 through 12 grossly intact Psych: calm, cooperative, normal affect Medications Administered Generic Name Dose Route Start Last Admin Trade Name Freq PRN Reason Stop Dose Admin Sodium Chloride 2,000 mls @ 999 mls/hr 04/23/24 05:29 04/23/24 05:47 Ns IVCONT 04/23/24 07:29 999 mls/hr .Q2H1M ONE Administration Medical Decision Making Medical Decision Making [facility] Narrative: My interpretation of labs: Patient's hematology and chemistry remain unchanged. Yesterday a D-dimer was negative. TSH checked yesterday, within normal limits. Patient is currently being treated for a UTI, patient states she has has been compliant with her medications. Serology test negative for influenza RSV and COVID. -patient receiving 2 L of fluids, then we will ambulate the patient. Patient received 2 L of fluids. Patient is about to be ambulated. I discussed with the patient that we will walk with her around the emergency room and check her heart rate. Plan: With walking, it is expected that patient's heart rate will increase. However, is also expected to return back to regular rate. If patient remains tachycardic, please call Cardiology and ask if they would recommend starting the patient on metoprolol or if they want to see the patient for a possible Holter monitor evaluation. Sign-out given to my colleague SHAILESH Garcia Differential Diagnosis Differential Diagnoses: The differential diagnosis associated with the presentation includes (Dehydration, POTS, SVT) Admission/Observation Consideration of admission/observation: Escalation of care including admission/observation considered (Patient was discharged yesterday, patient comes in with a recurrent symptoms. Observation considered) Lab Data [facility] Lab Attestation statement: I reviewed the patient's lab results. 04/23/24 04:31 04/23/24 04:31 Labs: Lab Results 04/23/24 Range/Units 04:31 WBC 4.0 L (4.8-10.8) X10*3/uL RBC 4.29 (4.20-5.50) X10*6/uL Hgb 11.1 L (12.0-16.0) g/dl Hct 34.0 L (37.0-47.0) % MCV 79.3 L (80.0-98.0) fL MCH 25.9 L (27.0-33.0) pg MCHC 32.6 (31.0-35.0) g/dl RDW 16.1 H (11.0-16.0) % Plt Count 302 (160-400) X10*3/uL MPV 10.2 (9.4-12.3) fL Absolute Nucleated RBC 0.000 (0.0-0.012) X10*3/uL Nucleated RBC % (auto) 0.0 (0.0-0.2) /100WBC Sodium 145 (135-145) mmol/L Potassium 3.5 (3.3-5.1) mmol/L Chloride 112 H (96-108) mmol/L Carbon Dioxide 23 (22-29) mmol/L Anion Gap 14 (12-20) BUN 8 L (9-16) mg/dL Creatinine 0.68 (0.5-1.4) mg/dL Estim Creat Clear Calc 116.3 Estimated GFR > 60 Random Glucose 124 H (60-115) mg/dL Calcium 8.8 (8.4-10.2) mg/dL Total Bilirubin 0.3 (0.0-1.0) mg/dL AST 19 (5-31) U/L ALT 15 (0-31) U/L Alkaline Phosphatase 66 (39-117) U/L Troponin I High Sens < 2.7 (<3.5-17.0) ng/L Total Protein 6.7 (6.5-8.0) g/dL Albumin 3.9 (3.5-5.0) g/dL Critical Care Time Critical Care Time Critical Care Time: Yes Total Critical Care Time: 45 Attestation: I have personally provided critical care time. Time includes review of lab data, radiology results, discussion with consultants, and monitoring for potential decompensation. Intervention performed as documented. Discharge Plan Discharge Clinical Impression: Sinus tachycardia Patient Disposition: Still a Patient Prescriptions: No Action cefuroxime axetil 500 mg tablet 500 mg PO BID Qty: 10 0RF Print Language: Mongolian
[2024-04-23] MEDS: 0.9 % Sodium Chloride 2,000 ML 999 ML IVCONT (05:47)
--- NOTE | 2024-04-23 07:21 | MHC.EDTECH ---
Post-IV fluid ambulation trial ~60feet with HR completed w/o any visible physical difficulty.Pre-trial HR at 85 and kwabena to 112 during trial. During trial, patient had normal gait w no muscular weakness, no imbalance, no dyspnea, and reported no dizziness or pain.
--- NOTE | 2024-04-23 07:59 | PC.NURSE ---
Patient ambulating pederson, HR went to 112s and returned to 90s at rest.
--- NOTE | 2024-04-23 08:59 | PC.NURSE ---
Patient OOB ambulating pederson, HR monitor in place, HR stayed between 106-112, SHAILESH Solorio made aware. Patient currently resting in bed, VSS, HR currently 84-85.
--- NOTE | 2024-04-23 12:16 | PM.CNCAR ---
History of Present Illness History of Present Illness Date of Service: 04/23/24 Chief complaint: TACHY Narrative: 33-year-old female who left the hospital 1 day ago when she presented with tachycardia. She was diagnosed with UTI and dehydration. She does pentecostal fast for 3 days without eating and drinking. She said she started her fast without hydration before hand and started feeling tachycardia and palpitations. These symptoms brought her to the emergency department. She was noticed to be significantly dehydrated and was given IV fluids. She also has urinalysis performed and was started on antibiotics. Urine culture has grown mixed yumi and likely that she does not have a UTI. She said she went home and was hydrating herself but had some palpitations and dizziness. Due to dizziness she decided to come back to the emergency department. Here her orthostatics were negative. She was given 2 L of fluid. Electrolytes are fairly normal looking. EKG has sinus rhythm with flattening of T-waves but potassium was 3.5 on this presentation. Thyroid panel was normal. 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 [facility] Past Medical History Medical History Thyroid nodule Social History Social History Household Members: Children Housing: Apartment Do you presently have visiting nurse or other home services: No Alcohol intake: never Patient Tobacco Use Status: Never used Tobacco Smoked in Last 30 Days: No e-Cigarette/Vaping Use: Never Used Second Hand Smoke Exposure: No Use of substances other than those prescribed or required for medical reasons: No Advance Directives: No Advance Directives Information Provided: Yes service: No Meds Allergies Allergy/AdvReac Type Severity Reaction Status Date / Time No Known Allergies Allergy Verified 04/23/24 04:42 Physical Exam Vital Signs: Vital Signs: Last Vital Signs Temp 98.1 F 04/23/24 10:31 Pulse 88 04/23/24 11:29 Resp 14 04/23/24 10:31 BP 119/80 04/23/24 11:29 Pulse Ox 99 04/23/24 10:31 O2 Del Method Room Air 04/23/24 10:31 BMI result Body Mass Index 27.1 GENERAL APPEARANCE: in no acute distress, pleasant. Dry lips and she looks dehydrated. NECK: no carotid bruit, no jugular venous distention. SKIN: no suspicious lesions, warm and dry. HEART: no murmurs, regular rate and rhythm. LUNGS: clear to auscultation bilaterally. ABDOMEN: soft, nontender. EXTREMITIES: no edema. PERIPHERAL PULSES: equal. NEUROLOGIC: No gross deficits, AAO X 3 Objective Labs and Meds 04/23/24 04:31 04/23/24 04:31 Lab results: Laboratory Results - last 24 hr 04/23/24 04:31 WBC 4.0 L RBC 4.29 Hgb 11.1 L Hct 34.0 L MCV 79.3 L MCH 25.9 L MCHC 32.6 RDW 16.1 H Plt Count 302 MPV 10.2 Absolute Nucleated RBC 0.000 Nucleated RBC % (auto) 0.0 Sodium 145 Potassium 3.5 Chloride 112 H Carbon Dioxide 23 Anion Gap 14 BUN 8 L Creatinine 0.68 Estim Creat Clear Calc 116.3 Estimated GFR > 60 Random Glucose 124 H Calcium 8.8 Total Bilirubin 0.3 AST 19 ALT 15 Alkaline Phosphatase 66 Troponin I High Sens < 2.7 Total Protein 6.7 Albumin 3.9 Assessment and Plan (1) Sinus tachycardia: Status: Acute Plan 33-year-old female presenting for palpitations and sinus tachycardia. She does pentecostal fasting for up to 3 days without eating and drinking. She presented to us after doing that couple of days ago and was quite dehydrated and had sinus tachycardia. She was volume resuscitated with improvement in tachycardia and symptoms. At home she had some further palpitations and dizziness and came back. She is not orthostatic. She has been given 2 L of fluid at this stage. I have advised her to continue to hydrate herself and probably add some electrolytes to her fluids and maybe drink Gatorade or similar electrolyte containing drinks. She already uses salt in her diet and that is adequate and she does not need to add more salt to her food. I think her presentation is due to dehydration and volume depletion. She understands this and will try to hydrate herself better. Thyroid panel is normal. We will arrange follow-up for her with our office. Thank you for allowing me to participate in the care of your patient. Please feel free to contact me if you have any questions. Procedures Date of Service Date of Service: 04/23/24
[2024-04-23 12:38] LABS: Iron 16 mcg/dL (30-160); Percent Iron Saturation 6 % (15-50); Total Iron Binding Capacity 277 mcg/dL (228-428); Unsaturated Iron Binding 261 ug/dL
== END 2024-04-23 13:43 | disposition home or self-care (01) ==
PROVIDERS: Physician Assistant Medical; Emergency Provider Emergency Medicine
DX: R00.0 Tachycardia, unspecified (principal); I49.9 Cardiac arrhythmia, unspecified; N39.0 Urinary tract infection, site not specified; R11.2 Nausea with vomiting, unspecified; Z79.899 Other long term (current) drug therapy
CPT/HCPCS: 36415; 80053; 83540; 84484; 85027; 93005; 96360; 96361; 99285

== ENCOUNTER → 2024-04-23 05:56 | Outpatient (BNV) | payer OTHER, SELFPAY | PROVIDERS: Emergency Provider Emergency Medicine; Visit Provider Internal Medicine Cardiovascular Disease | DX: R00.0 Tachycardia, unspecified (principal); R94.31 Abnormal electrocardiogram [ECG] [EKG] | CPT/HCPCS: 93010 ==

== ENCOUNTER 2024-05-11 09:21 | Emergency (ER) | payer OTHER, SELFPAY ==
--- NOTE | 2024-05-11 09:28 | ECG_ITS ---
Test Reason : palpitations Blood Pressure : */* mmHG Vent. Rate : 100 BPM Atrial Rate : 100 BPM P-R Int : 144 ms QRS Dur : 82 ms QT Int : 346 ms P-R-T Axes : 58 33 34 degrees QTcB Int : 446 ms Normal sinus rhythm Possible Left atrial enlargement Borderline ECG When compared with ECG of 23-Apr-2024 04:19, Nonspecific T wave abnormality no longer evident in Anterolateral leads Referred By: Generic ED Physician Electronically Signed By: Alexey Subramanian
[2024-05-11 09:31] VITALS: BP 135/87; PULSE 99; RESP 16; TEMP 37; O2SAT 99; BMI 27.8
[2024-05-11 10:18] LABS: MANUAL DIFF FLAG NO
[2024-05-11 10:22] LABS: Basophils Absolute Auto 0.1 X10*3/uL (0.0-0.2); Basophils Percent Auto 0.6 % (0-2); Eosinophils Percent Auto 0.1 % (0-4); Hemoglobin 10.9 g/dl (12.0-16.0); Imm Gran Abs Auto 0.04 X10*3/uL (0.00-0.03); Imm Gran Pct Auto 0.4 % (0.0-0.4); Lymphocytes Absolute Auto 0.8 X10*3/uL (1.2-4.9); Lymphocytes Percent Auto 8.9 % (20-40); Mean Corpuscular HGB Conc 31.1 g/dl (31.0-35.0); Mean Corpuscular Hemoglobin 25.4 pg (27.0-33.0); Mean Corpuscular Volume 81.6 fL (80.0-98.0); Monocytes Absolute Auto 0.2 X10*3/uL (0.1-1.2); Monocytes Percent Auto 1.9 % (2-11); Neutrophils Absolute Auto 7.8 x10*3/uL (2.0-8.3); Neutrophils Percent Auto 88.1 % (45-73); Platelet Count 272 X10*3/uL (160-400); Red Blood Count 4.29 X10*6/uL (4.20-5.50); Red Cell Distribution Width 15.9 % (11.0-16.0); White Blood Count 8.9 X10*3/uL (4.8-10.8)
[2024-05-11 10:40] LABS: Anion Gap 9 (12-20); Blood Urea Nitrogen 5 mg/dL (9-16); Calcium 8.9 mg/dL (8.4-10.2); Carbon Dioxide 22 mmol/L (22-29); Chloride 112 mmol/L (96-108); Creatinine Clr Calc Pharmacy 133.4; Estimated Glomerular Filt Rate > 60; Glucose Random 104 mg/dL (60-115); Potassium 4.3 mmol/L (3.3-5.1); Sodium 139 mmol/L (135-145)
--- NOTE | 2024-05-11 13:57 | ED_ITS ---
HPI - Arrhythmia/Palpitations General Chief Complaint: Arrhythmia/Palpitations Stated Complaint: Heart racing Time Seen by Provider: 05/11/24 13:43 Source: patient and old records reviewed Mode of arrival: ambulatory Limitations: no limitations History of Present Illness ED Provider: SHREYA BRIDGES narrative: 33 yo female with PMH of elevated HR recent admit with negative work up HR was 165 she was told to stay hydrated and she has been drinking 60-80 ounces of fluid a day in combination of water and gatorade. She notes she has been doing good since her admission (end of March) she admits her intake has been less these past two days. Today at rest felt her heart rate go up again 120s felt weak like she might pass out but these events only last 1 min or so. She denies OCP use, CP, recent cough and cold. Patient feels much better now is drinking gatorade and states she feels fine. Her first cardiology visit is the she has not had an ECHO or holter monitor. MD complaint: rapid heart beat and heart racing Onset (ago): hour(s) (couple) Duration: now resolved Severity: severe Context: occurred during rest Associated symptoms: near-syncope Treatments prior to arrival: other (deep breathing and drinking fluids) Related Data Previous Rx's ?Medication ?Instructions ?Recorded cefuroxime axetil 500 mg tablet 500 mg PO BID #10 tabs 04/22/24 Allergies Allergy/AdvReac Type Severity Reaction Status Date / Time No Known Allergies Allergy Verified 05/11/24 09:36 Review of Systems 2 Review of Systems: Constitutional : No Fever, No Chills, No Fatigue ENT/Mouth : No sore throat, No Rhinorrhea Eyes: No Eye Pain, No Swelling, No Redness Cardiovascular : No Chest Pain, No SOB, No Dyspnea on Exertion, pos palpitations Respiratory : No Cough, No Sputum Gastrointestinal : No Nausea, No Vomiting, No Diarrhea, No abdominal Pain Genitourinary : No Dysuria, No Urinary Frequency, No Hematuria, Musculoskeletal : No joint pain, No Myalgias, No Joint Swelling Skin : No Skin Lesions, No rash Neuro : No Weakness, No Numbness, No Dizziness, no Headache All other systems reviewed and are negative [facility] Past Medical History Attestation statement: The following information was validated with the patient. Source: old records reviewed Medical History Thyroid nodule Social History Social History Household Members: Children Housing: Apartment Do you presently have visiting nurse or other home services: No Alcohol intake: never Patient Tobacco Use Status: Never used Tobacco e-Cigarette/Vaping Use: Never Used Second Hand Smoke Exposure: No Advance Directives: No Advance Directives Information Provided: No service: No Physical Exam 2 Vital Signs: Vital Signs: Last Vital Signs Temp 98.6 F 05/11/24 09:31 Pulse 99 05/11/24 09:31 Resp 16 05/11/24 09:31 BP 135/87 05/11/24 09:31 Pulse Ox 99 05/11/24 09:31 O2 Del Method Room Air 05/11/24 09:31 BMI result Body Mass Index 27.8 Appearance: Alert. Oriented X3. No acute distress. Eyes: Pupils equal, round and reactive to light. ENT: Pharynx normal. Neck: Normal inspection. Neck supple. CVS: Normal heart rate and rhythm. Pulses normal. Respiratory: No respiratory distress. Breath sounds normal. Abdomen: Soft and nontender. Skin: Skin warm and dry. Normal skin color. Normal skin turgor. Extremities: No lower extremity edema. No calf ttp Neuro: Oriented X 3. No motor deficit. No sensory deficit. CN2-12 intact Medical Decision Making Medical Decision Making [facility] Narrative: 33 yo female with PMH of elevated heart rate just admitted here with HR in 160s no medications started and she is responding to home hydration therapies. She had another episode today but she has no ACS risk factors, not on OCPs, just worked up doubt VTE, she does admit to less intake which was possibly the cause she could have viral induced tachycardia such as COVID, POTs, at this time labs and HR reassuring with nonischemic EKG Differential Diagnosis Differential Diagnoses: The differential diagnosis associated with the presentation includes viral induced tachycardia such as COVID, POTs, SVT Admission/Observation Consideration of admission/observation: Escalation of care including admission/observation considered negative workup can follow up for outpatient holter she called PCP office while in ED Lab Data [facility] Lab Attestation statement: I reviewed the patient's lab results. 05/11/24 10:12 05/11/24 10:12 Labs: Lab Results 05/11/24 Range/Units 10:12 WBC 8.9 (4.8-10.8) X10*3/uL RBC 4.29 (4.20-5.50) X10*6/uL Hgb 10.9 L (12.0-16.0) g/dl Hct 35.0 L (37.0-47.0) % MCV 81.6 (80.0-98.0) fL MCH 25.4 L (27.0-33.0) pg MCHC 31.1 (31.0-35.0) g/dl RDW 15.9 (11.0-16.0) % Plt Count 272 (160-400) X10*3/uL MPV 11.0 (9.4-12.3) fL Immature Gran % (Auto) 0.4 (0.0-0.4) % Neut % (Auto) 88.1 H (45-73) % Lymph % (Auto) 8.9 L (20-40) % Taylor % (Auto) 1.9 L (2-11) % Eos % (Auto) 0.1 (0-4) % Baso % (Auto) 0.6 (0-2) % Lymph # (Auto) 0.8 L (1.2-4.9) X10*3/uL Taylor # (Auto) 0.2 (0.1-1.2) X10*3/uL Eos # (Auto) 0.0 (0.0-0.4) X10*3/uL Baso # (Auto) 0.1 (0.0-0.2) X10*3/uL Abs Immat Gran (auto) 0.04 H (0.00-0.03) X10*3/uL Absolute Neuts (auto) 7.8 (2.0-8.3) x10*3/uL Absolute Nucleated RBC 0.000 (0.0-0.012) X10*3/uL Nucleated RBC % (auto) 0.0 (0.0-0.2) /100WBC Sodium 139 (135-145) mmol/L Potassium 4.3 D (3.3-5.1) mmol/L Chloride 112 H (96-108) mmol/L Carbon Dioxide 22 (22-29) mmol/L Anion Gap 9 L (12-20) BUN 5 L (9-16) mg/dL Creatinine 0.60 (0.5-1.4) mg/dL Estim Creat Clear Calc 133.4 Estimated GFR > 60 Random Glucose 104 (60-115) mg/dL Calcium 8.9 (8.4-10.2) mg/dL Magnesium 2.0 (1.6-2.6) mg/dL Independent Interpretation I performed an independent interpretation of an: EKG Interpretation: Rate: 100 Rhythm: NSR [place]: normal Normal P waves. Normal CECILIO. Normal QRS complex. ST T wave : normal no GHISLAINE qTC: 446 prior studies: no change in EKG, chronic V1 t wave inversion The study has been interpreted contemporaneously by me. . External Record Review External record reviewed: Outpatient record Discharge Plan Discharge Clinical Impression: Palpitations Patient Disposition: Home, Self-Care Instructions: Heart Palpitations (ED) Additional Instructions: your labs and EKG are reassuring today continue your hydration process return for any worsening symptoms or concerns you need a holter monitor please reach out to your primary care doctor Prescriptions: No Action cefuroxime axetil 500 mg tablet 500 mg PO BID Qty: 10 0RF Stand Alone Forms: Work/School Release Print Language: Kyrgyz
[2024-05-11 14:07] VITALS: BP 135/87; PULSE 99; RESP 16; TEMP 37; O2SAT 99
== END 2024-05-11 14:08 | disposition home or self-care (01) ==
PROVIDERS: Emergency Provider Emergency Medicine
DX: R00.2 Palpitations (principal); R00.0 Tachycardia, unspecified; Z79.899 Other long term (current) drug therapy
CPT/HCPCS: 36415; 80048; 83735; 85025; 93005; 99283

== ENCOUNTER → 2024-05-11 09:28 | Outpatient (BNV) | payer OTHER, SELFPAY | PROVIDERS: Emergency Provider Emergency Medicine; Visit Provider Internal Medicine Cardiovascular Disease | DX: R00.2 Palpitations (principal); R94.31 Abnormal electrocardiogram [ECG] [EKG] | CPT/HCPCS: 93010 ==

== ENCOUNTER 2024-05-22 09:18 | Outpatient (AMB) | payer OTHER, SELFPAY ==
[2024-05-22 09:20] VITALS: BP 104/62; PULSE 87; BMI 27.5
--- NOTE | 2024-05-22 09:20 | A.OFFVIS_ITS ---
Vital Signs 05/22/24 09:20 Height 5 ft 4 in Weight 160 lb 0.889 oz BMI 27.5 BP 104/62 Blood Pressure Location Lt brachial Position Sitting Pulse 87 Pulse Source Pulse Oximeter Intake Visit Reasons: 1 mth f/up-per [employer] Manager Required: No Allergies No Known Allergies Allergy (Verified 05/22/24 09:22) Medication List - Last Reconciled 05/22/24 by Ami Osborn NP-C No Known Home Meds HPI HPI 1 mth f/up-per KM: Details: Angelika is a 33-year-old female with no significant past medical history who was recently seen at [facility] for tachycardia and heart palpitations. She had been doing a 3 day restoration fast. She was treated for UTI and dehydration. She returned to the ER 2 days later with recurrent symptoms and again received 2 L of IV fluid. She was seen by Dr. Subramanian for cardiology consultation and now presents for outpatient follow-up. Today she reports that she did go to the emergency room again on 05/11/2024 with similar symptoms. She says the triage nurse assess her and did vital signs and labs. She says she waited for a few hours and then was told everything came back fine and she could go. She has been doing generally well since then. She will feel rapid heart palpitations at times which happen randomly. She has been trying to stay well hydrated. She has not had any presyncope, syncope. No concerning shortness of breath, PND, orthopnea or edema. No chest discomfort at rest or with activity. She reports being active during the day but no routine exercise. Prior to her March hospitalization she had not had issues with tachycardia. [facility] Medical History Thyroid nodule Social History Household Members: Children Housing: Apartment Do you presently have visiting nurse or other home services: No Alcohol intake: never Patient Tobacco Use Status: Never used Tobacco e-Cigarette/Vaping Use: Never Used Second Hand Smoke Exposure: No service: No Review of Systems Const All systems reviewed & are unremarkable except as noted in HPI and below ENT Denies dizziness Card Denies chest pain, Denies chest pain at rest, Denies chest pain with activity, Reports rapid heart rate, Denies pedal edema, Denies edema, Denies leg edema, Reports lightheadedness, Denies palpitations, Denies dyspnea, Denies dyspnea on exertion and Denies orthopnea Resp Denies cough, Denies dyspnea and Denies dyspnea on exertion GI Denies hematochezia and Denies change in stool character Musc Denies abnormal gait, Denies limited range of motion, Denies muscle cramps, Denies muscle weakness, Denies numbness, Denies radiating pain into limb, Denies stiffness and Denies tingling Neuro Denies abnormal gait, Denies dizziness, Denies numbness and Denies tingling Endo Denies palpitations Physical Exam Vital Signs: Last Vital Signs Pulse 87 05/22/24 09:20 BP 104/62 05/22/24 09:20 BMI result Body Mass Index 27.5 Const General: cooperative, healthy appearing, comfortable and no acute distress Orientation/consciousness: patient oriented x3 Neck Neck: Yes normal visual inspection Resp Effort & Inspection: normal respiratory effort Auscultation: clear to auscultation bilaterally, no rales, no rhonchi and no wheezes Cardio Jugular venous distension: no JVD Rate: regular rate Rhythm: regular rhythm Heart sounds: S1 normal heart sound present, S2 normal heart sound present, no murmurs and no rubs Neuro General: patient oriented x3 Extrem General: Yes normal to inspection Psych Appearance: grossly normal Mental Status: mental status grossly normal Speech and movement: Normal speech and movement present Assessment & Plan Assessment & Plan (1) Sinus tachycardia: Code(s): R00.0 - Tachycardia, unspecified Category: Medical Plan: Recent ER visits and hospitalization for dehydration resulting in tachycardi a/heart palpitations. She was treated with IV fluids. Was doing a 3 day restoration fast at that time. Since then she was again seen in the emergency room for recurrent issues with palpitations. She was nonfasting and hydrating well at that time. EKG and lab work on that day showed no significant abnormalities. Since then she continues to have intermittent heart palpitations which she describes as random and rapid. Pulse is regular on examination today, normal rate. Her blood pressure is on the low side today. Reviewed the need for good hydration, and can use salt in her diet. Her palpitations most likely related to sinus tachycardia. Discuss this with her. For completeness will check a Holter monitor to assess for any arrhythmia, average heart rate and echocardiogram to assess for any structural abnormalities. Cardiology follow-up 4-6 weeks, sooner if needed. (2) Palpitations: Code(s): R00.2 - Palpitations Category: Medical Plan: As above (3) Hospital discharge follow-up: Code(s): Z09 - Encounter for follow-up examination after completed treatment for conditions other than malignant neoplasm Category: Medical Plan: As above Orders: Orders ECG 3 day holter monitor Today R00.0 - Tachycardia, unspecified, R00.2 - Palpitations CA echo transthoracic complete Today R00.0 - Tachycardia, unspecified, R00.2 - Palpitations Medications: Discontinued cefuroxime axetil Discontinued Reason: Patient no longer taking 500 mg PO BID 10 tabs 0RF Coding Level of Care Code Est Pt Level 4 (78371) Complex EM visit Add On G2211 Diagnoses Sinus tachycardia R00.0 Palpitations R00.2 Hospital discharge follow-up Z09 Time Spent (min) 28
--- OUTSIDE RECORDS SUMMARY | 2024-05-22 13:39 | XMS_ITS | Clinical Summary ---
Author Organization [facility] ity Address [address] [place] [address] Care Team Providers Care Packaging Mechanic Name Role Phone Erik Wang MD Primary Care Provider [phone] Surgical History Surgery Date Site/Laterality Comments OTHER SURGICAL HISTORY PROCEDURE: DENIES PREVIOUS SURGERY Medical History Medical History Date Comments Lactose intolerance DX:Lactose i ntolerance H. pylori infection 2013 DX:H. pylori infection Family History Medical History Relation Name Comments No Known Problems Daughter No Known Problems Father No Known Problems Maternal Grandfather DARRYL disease Maternal Grandmother Other: gallstones Mother Breast cancer Mother's side MGGM Heart attack Paternal Grandfather Heart failure Paternal Grandfather Dementia Paternal Grandmother No Known Problems Sister 1 No Known Problems Sister 2 No Known Problems Sister 3 Cervical cancer Neg Hx Colon cancer Neg Hx Ovarian cancer Neg Hx Pancreatic cancer Neg Hx Prostate cancer Neg Hx Uterine cancer Neg Hx Relation Name Status Comments Daughter Alive Father Alive Maternal Grandfather Maternal Grandmother Alive Mother Alive Mother's side MGGM Alive Paternal Grandfather Paternal Grandmother Alive Sister 1 Alive Sister 2 Alive Sister 3 Alive Social History Tobacco Use Types Packs/Day Years Used Date Smoking Tobacco: Never Smokeless Tobacco: Never Alcohol Use Standard Drinks/Week Comments No 0 (1 standard drink = 0.6 oz pur e alcohol) Sex and Gender Information Value Date Recorded Sex Assigned at Not on file Gender Identity Not on file Sexual Orientation Not on file Obstetrics History Last Filed Vital Signs Vital Sign Reading Time Taken Comments Blood Pressure 119/84 07/29/2023 8:45 AM EDT Pulse 84 07/29/2023 8:45 AM EDT Temperature - - Respiratory Rate - - Oxygen Saturation - - Inhaled Oxygen Concentration - - Weight 69.4 kg (153 lb) 07/29/2023 8:45 AM EDT Height - - Body Mass Index - - Plan of Treatment Health Maintenance Due Date Last Done Comments Hepatitis B Vaccines (1 of 3 - 19+ 3-dose series) 10/11/2011 Depression Screening 04/04/2022 HIV Screening 04/04/2022 Hepatitis C Screening 04/04/2022 Social Influencers of Health Screening 04/04/2022 COVID-19 Vaccine (1 - 2023-2 5 season) 2023 Influenza Vaccine (#1) 2023 Cervical Cancer Screening: P ap Smear 07/16/2025 07/16/2022, 03/11/2020 DTaP,Tdap,and Td Vaccines (2 - Td or Tdap) 06/13/2030 06/13/2020 HIB Vaccines Aged Out No longer eligi ble based on patient's age to complete this topic HPV Vaccines Aged Out No longer eligi ble based on patient's age to complete this topic Hepatitis A Vaccines Aged Out No long er eligible based on patient's age to complete this topic IPV Vaccines Aged Out No longer eligi ble based on patient's age to complete this topic MMR Vaccines Aged Out No longer eligi ble based on patient's age to complete this topic Meningococcal ACWY Vaccine Aged Out N o longer eligible based on patient's age to complete this topic Pneumococcal Vaccine: Pediatrics (0 to 5 Years) and At-Risk Patients (6 to 64 Years) Aged Out No longer eligible b ased on patient's age to complete this topic RSV Immunization Patients Under 20 months Aged Out No longer eligible b ased on patient's age to complete this topic Varicella Vaccines Aged Out No longer eligible based on patient's age to complete this topic Procedures Procedure Name Priority Date/Time Associated Diagnosis Comments PAP SMEAR Routine 07/16/2022 from Last 3 Months or Most Recently Relevant to Health Maintenance Results * Pap smear (07/16/2022) 07/16/2022 Narrative HISTORICAL TESTING LAB RESULTING AGENCY - 07/29/2022 11:50 AM EDT [id number] THINPREP PAP, IMAGED: NEGATIVE FOR SQUAMOUS INTRAEPITHELIAL LESION AND MALIGNANCY . GERALDINE QUIÑONEZ(ASCP) (CASE ELECTRONICALLY SIGNED 07 29 2022) RESULT OF APTIMA HIGH RISK HPV ASSAY: HIGH RISK HPV: ??NEGATIVE (SEROTYPES 16,18,31,33,35,39,45,51,52,56,58,59,66,68) COMPLETED ON 2022-07-17 ADEQUACY: SATISFACTORY ENDOCERVICAL/TRANSFORMATION ZONE COMPONENT PRESENT. SOURCE: THINPREP PAP HPV ANY DX: ??REFLEX 16 AND 18, CERVICAL, IMAGED CLINICAL INFORMATION: HPV ANY DIAGNOSIS. HORMONES, PAP HX NEGATIVE, LMP 07/02/2022, [Z01.419] [facility] CYTOLOGY ORDERAB LES HISTORICAL TESTING LAB RESULTING AGENCY from Last 3 Months or Most Recently Relevant to Health Maintenance Care Teams Packaging Mechanic Relationship Specialty Start Date End Date Erik Wang MD [address] [place] [address] PCP - General Internal Medicine 11/10/21
== END 2024-05-22 09:43 | disposition home or self-care (01) ==
PROVIDERS: Visit Provider Nurse Practitioner Family
DX: R00.0 Tachycardia, unspecified (principal); R00.2 Palpitations; Z09 Encounter for follow-up examination after completed treatment for conditions other than malignant neoplasm
CPT/HCPCS: 99214; G2211

== ENCOUNTER → 2024-05-22 09:18 | Outpatient (BNVA) | payer OTHER, SELFPAY | PROVIDERS: Visit Provider Nurse Practitioner Family | DX: R00.0 Tachycardia, unspecified (principal); R00.2 Palpitations; Z09 Encounter for follow-up examination after completed treatment for conditions other than malignant neoplasm | CPT/HCPCS: 99212 ==

== ENCOUNTER → 2024-06-14 08:04 | Outpatient (REF) | payer OTHER, SELFPAY ==
--- NOTE | 2024-06-14 08:07 | CA_ITS ---
Transthoracic Echocardiogram Patient (Last, First, Middle): Angelika Zhang M Gender: Female Date of : 1990 Age: 33 Procedure Date: 06/14/2024 Procedure Type: Transthoracic Echocardiogram Location: OP Height: 162.56 cm Weight: 72.58 kg BSA: 1.78 m2 Heart Rate: bpm BP: 104 / 62 mmHg User Interface Artist: SORAYA Referring MD: Ami Osborn [employer] CUTTERJavidC Symptoms: R00.0 - Tachycardia, unspecified Study Quality: Adequate ECG Rhythm: Sinus Conclusions: - The left ventricular systolic function is normal. The calculated ejection fraction is 60% by biplane method. - No obvious valvular pathology seen on this study. Findings Left Ventricle Normal left ventricular cavity size. There is normal left ventricular wall thickness. The left ventricular systolic function is normal. The calculated ejection fraction is 60% by biplane method. There is no evidence of regional wall motion abnormalities. Diastolic function is normal for age. Right Ventricle Normal right ventricular cavity size and systolic function. Atria Both atria are normal in size. Aortic Valve There is a normal trileaflet aortic valve. There is no aortic valve stenosis. There is no aortic valve regurgitation. Mitral Valve The mitral valve appears normal. There is trace mitral valve regurgitation. There is no mitral valve stenosis. Pulmonic Valve The pulmonic valve is likely normal. Tricuspid Valve There is trace tricuspid valve regurgitation. There is no evidence of pulmonary hypertension. Great Vessels The asc aorta is normal in size. Venous The inferior vena cava is normal in size and collapses greater than 50% with inspiration. Pericardium/Pleural There is no evidence of pericardial effusion. Prior Study Comparison No prior study available for comparison. Recommendations, Care & Conclusions No obvious valvular pathology seen on this study. Measurements 2D Linear Measurements IVSd: 0.77 0.6-0.9/0.6-1.0 cm LVIDd: 4.67 3.9-5.3/4.2-5.9 cm LVIDd Index: 2.62 2.4-3.2/2.2-3.1 cm/m2 LVIDs: 2.85 2.0-3.6 cm LVPWd: 0.67 0.7-1.1 cm LA Diam: 3.50 2.7-3.8/3.0-4.0 cm LAIDs Index: 1.97 1.5-2.3 cm/m2 LV Mass: 130.95 67-162/88-224 g LV Mass Index: 73.57 43-95/49-115 g/m2 LVOT Diam: 2.10 3.0+(-)1.3 cm 2D Systolic Function EF 4C: 58.80 >55% EF 2C: 59.50 >55% EF BiP: 60.00 >55% Mitral Valve MV Pk E: 0.80 MV PK A: 0.72 MV Decel Time: 166.00 E/A: 1.10 E'Lateral: 16.00 E'Medial: 10.40 E/E' Med: 7.70 E/E' Lat: 5.00 PHT: 48.00 MVA PHT: 4.58 Decel Esmeralda: 4.82 Aortic Valve AoV Pk Tom: 1.31 AoV Mn Tom: 0.97 AoV VTI: 0.28 AoV Pk Grad: 7.00 Aov Mn Grad: 4.00 ALEXANDER Cont.VTI: 2.73 LVOT LVOT Pk Tom: 1.07 LVOT Mn Tom: 0.75 LVOT VTI: 0.22 LVOT Pk Grad: 5.00 LVOT Mn Grad: 3.00 LVOT Diam: 2.10 LVOT Area: 3.46 Diastolic Function MV Pk E: 0.80 MV Pk A: 0.72 E/A: 1.10 E'Medial: 10.40 E/E' Med: 7.70 E' Laterial: 16.00 E/E' Lat: 5.00 Right Ventricle TAPSE (mm): 25.20 TVS' Tom: 12.90 Tricuspid Valve TR Pk Tom: 1.44 TR Pk Grad: 8.00 RA Press: 3.00 RVSP: 11.00 Great Vessels Aorta Sinus of Valsalva: 2.85 2.0-3.[address] Ridge: 2.31 1.7-3.4 cm Ao Asc: 2.60 2.1-3.4 cm Ao Arch: 2.40 Updated in Other Vendor System with Status of Final Fish Goldstein MD electronically signed on 06/14/2024 12:35:10 PM with status of Final
--- OUTSIDE RECORDS SUMMARY | 2024-06-14 08:10 | XMS_ITS | Clinical Summary ---
Author Organization [facility] ity Address [address] [place] [address] Care Team Providers Care Yard Attendant Name Role Phone Erik Wang MD Primary Care Provider [phone] Surgical History Surgery Date Site/Laterality Comments OTHER [...] drink = 0.6 oz pur e alcohol) Comments Unknown Sex and Gender Information Value Date Recorded Sex Assigned at Not on file Legal Sex Female 8:16 PM EST Gender Identity Not on file Sexual Orientation [...] patient's age to complete this topic Meningococcal B Vacine Aged Out No lo nger eligible based on patient's age to complete [...] RESULTING AGENCY - 07/29/2022 11:50 AM EDT [id number] THINPREP PAP, IMAGED: NEGATIVE FOR SQUAMOUS INTRAEPITHELIAL [...] HORMONES, PAP HX NEGATIVE, LMP 07/02/2022, [Z01.419] us [facility] LAB CYTOLOGY ORDERABLES Zeynep ann-marie Result HISTORICAL TESTING LAB RESULTING AGENCY from Last 3 Months or Most Recently Relevant to Health Maintenance Care Teams Yard Attendant Relationship Specialty Start Date End Date Erik Wang MD [address] [place] [address] PCP - General Internal Medicine 11/10/21
== END ==
LOC: HO.CARD 08:04
PROVIDERS: Visit Provider Nurse Practitioner Family
DX: R00.0 Tachycardia, unspecified (principal); R00.2 Palpitations
CPT/HCPCS: 93242; 93306

== ENCOUNTER → 2024-06-14 08:07 | Outpatient (BNV) | payer OTHER, SELFPAY | PROVIDERS: Visit Provider Internal Medicine | DX: R00.0 Tachycardia, unspecified (principal) | CPT/HCPCS: 93306 ==

== ENCOUNTER 2024-06-29 08:23 | Outpatient (AMB) | payer OTHER, SELFPAY ==
[2024-06-29 08:24] VITALS: BP 120/62; PULSE 85; BMI 27.9
--- NOTE | 2024-06-29 08:24 | MHC.OFFVIS ---
Vital Signs 06/29/24 08:24 Height 5 ft 4 in Weight 162 lb 11.218 oz BMI 27.9 BP 120/62 Blood Pressure Location Lt brachial Position Sitting Pulse 85 Pulse Source Pulse Oximeter Intake Visit Reasons: 4-6 wk follow up Allergies No Known Allergies Allergy (Verified 06/29/24 08:27) Medication List - Last Reconciled 06/29/24 by Ami Osborn, LAUREANO-C No Known Home Meds HPI HPI 4-6 wk follow up: Details: Angelika is a 33-year-old female with no significant past medical history who was recently seen at [facility] for tachycardia and heart palpitations. She had been doing a 3 day worship fast. She was treated for UTI and dehydration. She returned to the ER 2 days later with recurrent symptoms and again received 2 L of IV fluid. She was referred to Cardiology and outpatient Holter monitor and echocardiogram were completed. She now presents for follow-up. Today she reports she has been doing very well since her last visit in April. She has not had any concerning heart palpitations. She has no chest discomfort, shortness of breath, lightheadedness. She reports good activity tolerance. [facility] Medical History Thyroid nodule Social History Household Members: Children Housing: Apartment Do you presently have visiting nurse or other home services: No Alcohol intake: never Patient Tobacco Use Status: Never used Tobacco e-Cigarette/Vaping Use: Never Used Second Hand Smoke Exposure: No service: No Review of Systems Const All systems reviewed & are unremarkable except as noted in HPI and below ENT Denies dizziness Card Denies chest pain, Denies chest pain at rest, Denies chest pain with activity, Denies rapid heart rate, Denies pedal edema, Denies edema, Denies leg edema, Denies lightheadedness, Denies palpitations, Denies dyspnea, Denies dyspnea on exertion and Denies orthopnea Resp Denies cough, Denies dyspnea and Denies dyspnea on exertion GI Denies hematochezia and Denies change in stool character Musc Denies abnormal gait, Denies limited range of motion, Denies muscle cramps, Denies muscle weakness, Denies numbness, Denies radiating pain into limb, Denies stiffness and Denies tingling Neuro Denies abnormal gait, Denies dizziness, Denies numbness and Denies tingling Endo Denies palpitations Physical Exam Vital Signs: Last Vital Signs Pulse 85 06/29/24 08:24 BP 120/62 06/29/24 08:24 BMI result Body Mass Index 27.9 Const General: cooperative, healthy appearing, comfortable and no acute distress Orientation/consciousness: patient oriented x3 Neck Neck: Yes normal visual inspection Resp Effort & Inspection: normal respiratory effort Auscultation: clear to auscultation bilaterally, no rales, no rhonchi and no wheezes Cardio Jugular venous distension: no JVD Rate: regular rate Rhythm: regular rhythm Heart sounds: S1 normal heart sound present, S2 normal heart sound present, no murmurs and no rubs Neuro General: patient oriented x3 Extrem General: Yes normal to inspection Psych Appearance: grossly normal Mental Status: mental status grossly normal Speech and movement: Normal speech and movement present Assessment & Plan Assessment & Plan (1) Sinus tachycardia: Code(s): R00.0 - Tachycardia, unspecified Category: Medical Plan: Recent ER visits and hospitalization for dehydration resulting in tachycardia/heart palpitations. She was treated with IV fluids. Was doing a 3 day worship fast at that time. A Holter monitor was done on 06/14/2024 for 3 days showing sinus rhythm with average heart rate 87, rare PACs and PVCs. Her symptoms correlated with PVCs and sinus rhythm. An echocardiogram was done on 06/14/2024 showing EF 60%, no valve abnormalities or regional wall motion abnormalities. Test results reviewed with her in detail. Instructed to maintain good hydration, continue activity as tolerated. Offered reassurance that no concerning cardiac findings identified. Cardiology follow-up p.r.n.. (2) Palpitations: Code(s): R00.2 - Palpitations Category: Medical Plan: As above Plan Time spent on chart review, documentation, interview and assessment Coding Level of Care Code Est Pt Level 3 (22879) Complex EM visit Add On G2211 Diagnoses Sinus tachycardia R00.0 Palpitations R00.2 Time Spent (min) 22
--- OUTSIDE RECORDS SUMMARY | 2024-06-29 08:48 | XMS_ITS | Clinical Summary ---
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 Name Role Phone Erik Wang MD Primary Care Provider Surgical History Surgery Date Site/Laterality Comments OTHER [...] RESULTING AGENCY - 07/29/2022 11:50 AM EDT [id number] THINPREP PAP, IMAGED: NEGATIVE FOR SQUAMOUS INTRAEPITHELIAL [...] NEGATIVE, LMP 07/02/2022, [Z01.419] us Felicitas Gastelum [facility] CYTOLOGY ORDERABLES Zeynep ann-marie Result HISTORICAL TESTING LAB RESULTING AGENCY from Last 3 Months or Most Recently Relevant to Health Maintenance Care Teams Dye Range Operator Relationship Specialty Start Date End Date Erik Wang MD [address] [place] [address] PCP - General Internal Medicine 11/10/21
== END 2024-06-29 09:12 | disposition home or self-care (01) ==
PROVIDERS: Visit Provider Nurse Practitioner Family
DX: R00.0 Tachycardia, unspecified (principal); R00.2 Palpitations
CPT/HCPCS: 99213; G2211

== ENCOUNTER → 2024-06-29 08:23 | Outpatient (BNVA) | payer OTHER, SELFPAY | PROVIDERS: Visit Provider Nurse Practitioner Family | DX: R00.0 Tachycardia, unspecified (principal); R00.2 Palpitations | CPT/HCPCS: 99212 ==